=== PATIENT | male | born 1970 | race Caucasian/White ===

== ENCOUNTER → 2016-12-22 | Outpatient (CLI) | payer BC ==
[~2016-12-22] MED LIST: NONE PER PT
== END | disposition home or self-care (01) ==
LOC: STAR 10:38
PROVIDERS: ATTEND Orthopaedic Surgery
DX: Z02.9 Encounter for administrative examinations, unspecified (principal)

== ENCOUNTER 2016-12-29 10:04 | Day surgery (SDC) | payer BC ==
[~2016-12-29] VITALS: Ht 170.2 cm; Wt 83.0 kg
[~2016-12-29 10:04] MED LIST changes: +BUPIVACAINE/PF-EPI 0.25% 1:200K ONE; +LIDOCAINE 1%-EPI 1:100K, 50ML ONE
[2016-12-29] MEDS ORDERED: LACTATED RINGERS 1,000 ML IV SCH (10:18)
[2016-12-29 10:19] VITALS: BP 158/93
[2016-12-29] MEDS ORDERED: OXYcodone 5 MG/5 ML ORAL.SOL UDC PO PRN (10:30)
[2016-12-29] MEDS ORDERED: MEPERIDINE/PF 25MG/0.5ML IVPush PRN (10:30)
[2016-12-29] MEDS ORDERED: hydrALAzine 20 MG/ML, 1ML IV PRN (10:30)
[2016-12-29] MEDS ORDERED: ACETAMINOPHEN 325 MG TABLET PO PRN (10:30)
[2016-12-29] MEDS ORDERED: METOPROLOL 1 MG/ML, 5ML IV PRN (10:30)
[2016-12-29] MEDS ORDERED: FENTANYL PF 100 MCG/2ML IV PRN (10:30)
[2016-12-29] MEDS ORDERED: EPHEDRINE 50 MG/ML, 1ML IVPush PRN (10:30)
[2016-12-29] MEDS ORDERED: HYDROmorphone 1 MG/ML, 1ML IV PRN (10:30)
[2016-12-29] MEDS ORDERED: LABETALOL 5MG/ML, 20ML IV PRN (10:30)
[2016-12-29] MEDS ORDERED: ONDANSETRON 2MG/ML, 2ML IVPush PRN (10:30)
[2016-12-29] MEDS ORDERED: ALBUTEROL SULFATE 2.5 MG/3 ML NPPB PRN (10:30)
[2016-12-29] MEDS ORDERED: FENTANYL PF 100 MCG/2ML ONE (10:55)
[2016-12-29] MEDS ORDERED: MIDAZOLAM 1 MG/ML, 2ML ONE (10:55)
[2016-12-29] MEDS ORDERED: GLYCOPYRROLATE 0.2MG/1ML ONE (12:11)
[2016-12-29] MEDS ORDERED: PROPOFOL 10 MG/ML, 20ML ONE (12:11)
[2016-12-29] MEDS ORDERED: NEOSTIGMINE 1 MG/ML, 10ML ONE (12:11)
[2016-12-29] MEDS ORDERED: ONDANSETRON 2MG/ML, 2ML ONE (12:11)
[2016-12-29] MEDS ORDERED: DEXAMETHASONE 4 MG/ML, 1ML ONE (12:11)
[2016-12-29] MEDS ORDERED: CEFAZOLIN 1,000 MG ONE (12:11)
[2016-12-29] MEDS ORDERED: LABETALOL 5MG/ML, 20ML ONE (12:11)
[2016-12-29] MEDS ORDERED: CLINDAMYCIN 150 MG/ML, 6ML ONE (12:23)
[2016-12-29] MEDS ORDERED: BUPIVACAINE/PF-EPI 0.25% 1:200K INFIL ONE (12:54)
[2016-12-29] MEDS ORDERED: LIDOCAINE 1%-EPI 1:100K, 50ML INFIL ONE (12:55)
[2016-12-29] MEDS ORDERED: ACETAMINOPHEN 325 MG TABLET ONE (14:06)
[2016-12-29] MEDS ORDERED: ACETAMINOPHEN 650 MG/20.3 ML UDC ONE (14:06)
[2016-12-29] MEDS ORDERED: MEPERIDINE/PF 25MG/0.5ML ONE (14:06)
[2016-12-29] MEDS ORDERED: OXYcodone 5 MG/5 ML ORAL.SOL UDC ONE (14:07)
== END 2016-12-29 16:10 | disposition home or self-care (01) ==
LOC: OUT 10:04
PROVIDERS: ATTEND Orthopaedic Surgery
DX: S46.012A Strain of muscle(s) and tendon(s) of the rotator cuff of left shoulder, initial encounter (principal); S43.432A Superior glenoid labrum lesion of left shoulder, initial encounter; M65.812 Other synovitis and tenosynovitis, left shoulder; M25.812 Other specified joint disorders, left shoulder; M19.012 Primary osteoarthritis, left shoulder; S46.212A Strain of muscle, fascia and tendon of other parts of biceps, left arm, initial encounter; Z72.89 Other problems related to lifestyle; X58.XXXA Exposure to other specified factors, initial encounter; Y93.9 Activity, unspecified; Y92.9 Unspecified place or not applicable; Y99.9 Unspecified external cause status
CPT/HCPCS: 23430; 29823; 29824; 29826; 29827; J0690; J1100; J2175; J2250; J2405; J2704; J2710; J3010; J7120; J3490; C1713